=== PATIENT | female | born 1985 | race Caucasian/White ===

== ENCOUNTER 2016-10-14 06:26 | Inpatient (IN) ==
[2016-10-14] MEDS ORDERED: Lidocaine -MPF 4% 5 ML AMPUL ONE (06:54)
[2016-10-14] MEDS ORDERED: *HR* FentaNYL (PF) 100 MCG/2 ML VIAL ONE (07:00)
[2016-10-14] MEDS ORDERED: Lidocaine -MPF 2% 2 ML VIAL ONE (07:00)
[2016-10-14] MEDS ORDERED: Dexamethasone 4 MG/ML VIAL ONE (07:00)
[2016-10-14] MEDS ORDERED: *HR* Propofol 200 MG/20 ML VIAL IVP ONE (07:00)
[2016-10-14] MEDS ORDERED: *HR* Midazolam HCl 2 MG/2 ML VIAL ONE ×2 (07:00→07:33)
[2016-10-14] MEDS ORDERED: *HR* Succinylcholine 200 MG/10 ML VIAL IVP ONE (07:00)
[2016-10-14] MEDS ORDERED: Ondansetron 4 MG/2 ML VIAL ONE (07:00)
[2016-10-14] MEDS ORDERED: Albuterol 2.5 MG/3 ML NEBULIZER ONE (07:01)
[2016-10-14] MEDS ORDERED: Lidocaine 1% 20 ML MDV ID ONE (07:09)
[2016-10-14] MEDS ORDERED: *HR* Rocuronium Bromide 50 MG/5 ML VIAL ONE ×2 (07:10→09:49)
[2016-10-14] MEDS ORDERED: Scopolamine Patch 1.5 MG PATCH.TD72 TD ONE (07:18)
[2016-10-14] MEDS ORDERED: Acetaminophen IV 1,000 MG/100 ML INFUS..BTL IVPB ONE (07:28)
[2016-10-14] MEDS: Ringers Solution, Lactated 1,000 ML IVC SCH ×2 (07:31→09:16)
[2016-10-14] MEDS ORDERED: *HR* Remifentanil 2 MG VIAL IVP ONE ×2 (07:33→09:53)
[2016-10-14] MEDS ORDERED: Propofol 500 MG/50 ML INFUS..BTL ONE ×4 (07:33→09:24)
[2016-10-14] MEDS ORDERED: Water for inj. (sterile) 10 ML IV ONE (07:40)
[2016-10-14] MEDS ORDERED: Ondansetron 4 MG/2 ML VIAL IVP ONE (08:38)
[2016-10-14] MEDS ORDERED: *HR* Promethazine 25 MG/ML VIAL IVP PRN (08:38)
[2016-10-14] MEDS ORDERED: *HR* Morphine 2 MG/ML SYRINGE IVP PRN ×2 (08:38→13:22)
[2016-10-14] MEDS ORDERED: Naloxone 0.4 MG/ML INJ IVP PRN ×2 (08:38→13:22)
[2016-10-14] MEDS ORDERED: *HR* Midazolam HCl 2 MG/2 ML VIAL IVP PRN (08:38)
[2016-10-14] MEDS ORDERED: Dexamethasone 4 MG/ML VIAL IVP ONE (08:38)
[2016-10-14] MEDS ORDERED: Neostigmine Methylsulfate 3 MG/3 ML SYRINGE ONE (09:37)
[2016-10-14] MEDS ORDERED: Ketorolac 30 MG/ML VIAL ONE (09:37)
[2016-10-14] MEDS ORDERED: *HR* Morphine 10 MG/ML VIAL ONE (11:10)
[2016-10-14] MEDS: *HR* HYDROmorphone (PF) 1 MG/ML SYRINGE IVP PRN ×2 (11:28→11:34)
[2016-10-14] MEDS ORDERED: *HR* HYDROmorphone (PF) 1 MG/ML SYRINGE ONE (12:25)
[2016-10-14] MEDS ORDERED: *HR* Belladonna Alkaloids/Opium 60 MG RECTAL SUPPOSITORY RC PRN (13:22)
[2016-10-14] MEDS ORDERED: *HR* Promethazine 25 MG/ML VIAL IV PRN (13:22)
[2016-10-14] MEDS: *HR* HYDROcodone/Acet 5/325 mg TABLET PO PRN ×3 (13:48→21:48)
[2016-10-14] MEDS: Hyoscyamine SL 0.125 MG TAB.SUBL SL SCH ×2 (14:10→21:04)
[2016-10-14] MEDS: 0.9 % Sodium Chloride 1,000 ML IVC SCH ×2 (14:11→21:05)
[2016-10-15] MEDS: *HR* HYDROcodone/Acet 5/325 mg TABLET PO PRN ×5 (01:43→21:38)
[2016-10-15] MEDS: 0.9 % Sodium Chloride 1,000 ML IVC SCH ×3 (03:25→13:23)
[2016-10-15 05:24] LABS: Basophils % 0.1 %; Eosinophils % 0.4 %; Hematocrit 34.4 % (35.3-44.9); Hemoglobin 11.5 g/dL (11.5-15.4); Immature Granulocytes % 0.6 % (0-4); Lymphocytes # 1.9 K/mcL (0.6-4.6); Mean Corpuscular HGB Conc 33.4 g/dL (31.6-35.5); Mean Corpuscular Hemoglobin 28.3 pg (28.0-33.3); Mean Corpuscular Volume 84.7 fL (83.0-100.0); Mean Platelet Volume 10.1 fL (9.4-12.4); Monocytes % 9.7 %; Neutrophils # 7.5 K/mcL (1.6-8.9); Platelet Count 220 K/mcL (140-400); Red Blood Count 4.06 M/mcL (3.82-4.97); Red Cell Distribution Width 12.6 % (11.5-14.5); Segmented Neutrophils % 71.2 %
[2016-10-15 05:36] LABS: BUN/Creatinine Ratio 11 (6-26); Blood Urea Nitrogen 8 mg/dL (7-20); Calcium 8.1 mg/dL (8.6-10.8); Carbon Dioxide 21 mEq/L (19-29); Chloride 111 mEq/L (98-109); Glucose 105 mg/dL (70-99); Osmolality,Calculated 289 (280-300); Potassium 3.7 mEq/L (3.5-4.5); Sodium 140 mEq/L (136-145); eGFR For African Americans > 60 (> 60); eGFR For Non-African Americans > 60 (> 60)
[2016-10-15] MEDS: Hyoscyamine SL 0.125 MG TAB.SUBL SL SCH ×3 (07:59→19:49)
[2016-10-15] MEDS: *HR* HYDROmorphone (PF) 1 MG/ML SYRINGE IVP PRN ×3 (09:47→23:19)
[2016-10-16] MEDS: *HR* HYDROcodone/Acet 5/325 mg TABLET PO PRN ×2 (01:24→08:16)
[2016-10-16] MEDS: *HR* HYDROmorphone (PF) 1 MG/ML SYRINGE IVP PRN (03:17)
[2016-10-16 07:38] VITALS: BP 105/65
[2016-10-16] MEDS: Hyoscyamine SL 0.125 MG TAB.SUBL SL SCH (08:15)
[2016-10-16] MEDS: 0.9 % Sodium Chloride 1,000 ML IVC SCH (08:53)
== END 2016-10-16 11:27 | disposition home or self-care (01) | DRG 441 ==
LOC: SAMDAY 06:26 → 3ANU 13:14
PROVIDERS: ADMIT Urology; ATTEND Urology